=== PATIENT | female | born 1980 | race Caucasian/White ===

== ENCOUNTER 2017-03-19 05:47 | Day surgery (SDC) | payer OTHER ==
[~2017-03-19] VITALS: Ht 170.2 cm; Wt 80.3 kg
[~2017-03-19 05:47] MED LIST: [UNRECOGNIZED DRUG - REMARK]
[2017-03-19] MEDS ORDERED: HYDROmorphone 2 MG/ML VIAL IVP PRN ×3 (08:45→10:45)
[2017-03-19] MEDS ORDERED: MEPERIDINE HCL/PF 25 MG/ML DISP.SYRIN IVP PRN (08:45)
[2017-03-19] MEDS ORDERED: LR 1,000 ML IV SCH (08:45)
[2017-03-19] MEDS ORDERED: HYDROmorphone 1 MG INJ. 1 MG/ML AMPUL IVP PRN (08:45)
[2017-03-19 10:26] VITALS: BP_SYST 103
[2017-03-19] MEDS ORDERED: ONDANSETRON HCL 4 MG/2 ML VIAL IVP PRN (10:45)
[2017-03-19] MEDS ORDERED: HYDROcodone/ACETAMIN 5-325 MG TAB (NORCO/ VICODIN) PO PRN (10:45)
[2017-03-19] MEDS ORDERED: OXYCODONE/ACETAMINOPHEN 5-325 TABLET PO PRN ×2 (10:45)
[2017-03-19] MEDS ORDERED: HYDROmorphone 1 MG INJ. 1 MG/ML AMPUL ONE (10:56)
== END 2017-03-19 12:35 | disposition home or self-care (01) ==
LOC: SDS 05:47
PROVIDERS: ATTEND Specialist
DX: N80.1 Endometriosis of ovary (principal); N73.6 Female pelvic peritoneal adhesions (postinfective); Z90.710 Acquired absence of both cervix and uterus; Z88.0 Allergy status to penicillin; Z88.8 Allergy status to other drugs, medicaments and biological substances; R00.0 Tachycardia, unspecified
CPT/HCPCS: 58662; 88305; C1727; J1170; J7120

== ENCOUNTER 2020-09-15 15:11 | Outpatient (CLI) | payer OTHER | END 2020-09-15 20:50 | disposition home or self-care (01) | LOC: EEVIPCON 15:11 → SRD 15:11 | PROVIDERS: ATTEND Family Medicine | DX: R60.9 Edema, unspecified (principal) ==

== ENCOUNTER 2020-10-18 14:15 | Outpatient (CLI) | payer OTHER ==
[2020-10-18 15:40] LABS: HEMATOCRIT 37.5 % (36-48); HEMOGLOBIN 12.9 g/dL (12.0-16.0); MEAN CORPUSCULAR HEMOGLOBIN 32 pg (27-31); MEAN CORPUSCULAR HGB CONC 34 % (32-36); MEAN CORPUSCULAR VOLUME 93 fL (79.0-98.0); PLATELET COUNT (AUTO) 286 K/uL (130-430); RED BLOOD CELL COUNT(AUTO) 4.04 MIL/uL (4.2-6.2); WHITE BLOOD COUNT (AUTO) 5.5 K/uL (4.8-10.8)
[2020-10-18 16:11] LABS: BILIRUBIN,DIRECT 0.1 mg/dL (0.0-0.3); CALCIUM 8.4 mg/dL (8.4-11.0); CREATININE 0.79 mg/dL (0.55-1.30); POTASSIUM 3.6 mmol/L (3.5-5.1); THYROID STIMULATING HORMONE 1.25 uIu/mL (0.36-3.74); TOTAL BILIRUBIN 0.5 mg/dL (0.0-1.0)
[2020-10-18 17:12] LABS: BAND % (MANUAL) 4 % (0-6); BASOPHILS % (MANUAL) 0 % (0-2); EOSINOPHILS % (MANUAL) 4 % (0-7); LYMPHOCYTES % (MANUAL) 38 % (20-46); MONOCYTES % (MANUAL) 15 % (0-11)
[2020-10-19 08:06] LABS: RA LATEX TURBID <10.0 IU/mL (0.0-13.9); TRIIODOTHYRONINE, FREE 3.2 pg/mL (2.0-4.4)
[2020-10-19 15:06] LABS: ANTI NUCLEAR AB WITH REFLEX Negative (Negative)
== END 2020-10-18 21:06 | disposition home or self-care (01) ==
LOC: SLB 14:15
PROVIDERS: ATTEND Family Medicine
DX: R20.2 Paresthesia of skin (principal); Z00.00 Encounter for general adult medical examination without abnormal findings; E78.41 Elevated Lipoprotein(a); Z13.220 Encounter for screening for lipoid disorders
CPT/HCPCS: 36415; 80053; 80061; 82248-TC; 82607; 83036; 84443-TC; 84481; 85007; 85027; 86038; 86431

== ENCOUNTER 2020-10-28 11:16 | Outpatient (CLI) | payer OTHER ==
[2020-10-28 12:58] LABS: BASOPHILS % (AUTO) 0.7 % (0.0-2.0); EOSINOPHILS # (AUTO) 0.1 K/uL (0.0-0.4); EOSINOPHILS % (AUTO) 2.5 % (0.0-4.0); HEMATOCRIT 37.4 % (36-48); HEMOGLOBIN 12.9 g/dL (12.0-16.0); LYMPHOCYTES # (AUTO) 1.9 K/uL (1.0-5.5); LYMPHOCYTES % (AUTO) 40.8 % (20.5-51.5); MEAN CORPUSCULAR HEMOGLOBIN 32 pg (27-31); MEAN CORPUSCULAR HGB CONC 34 % (32-36); MEAN CORPUSCULAR VOLUME 93 fL (79.0-98.0); MONOCYTES # (AUTO) 0.2 K/uL (0.0-1.0); MONOCYTES % (AUTO) 3.4 % (1.7-9.3); NEUTROPHILS # (AUTO) 2.5 K/uL (1.8-7.7); NEUTROPHILS % (AUTO) 52.6 % (40.0-70.0); PLATELET COUNT (AUTO) 249 K/uL (130-430); RED BLOOD CELL COUNT(AUTO) 4.03 MIL/uL (4.2-6.2); RED CELL DISTRIBUTION WIDTH 12.9 % (9.0-15.0); WHITE BLOOD COUNT (AUTO) 4.7 K/uL (4.8-10.8)
[2020-10-28 13:16] LABS: ALBUMIN 3.9 g/dL (3.4-4.8); CALCIUM 8.2 mg/dL (8.4-11.0); CREATININE 0.86 mg/dL (0.55-1.30); POTASSIUM 3.5 mmol/L (3.5-5.1); TOTAL BILIRUBIN 0.3 mg/dL (0.0-1.0)
[2020-10-28 13:22] LABS: BILIRUBIN,URINE NEGATIVE (NEGATIVE); BLOOD, URINE NEGATIVE (NEGATIVE); CLARITY/URINE CLEAR (CLEAR); COLOR,URINE YELLOW (YELLOW); GLUCOSE,URINE NEGATIVE (NEGATIVE); KETONES,URINE NEGATIVE (NEGATIVE); LEUKOCYTE ESTERASE ,URINE NEGATIVE (NEGATIVE); NITRITE, URINE NEGATIVE (NEGATIVE); PROTEIN URINE NEGATIVE (NEGATIVE); UROBILINOGEN,URINE 0.2 (0.2-1.0)
[2020-10-28 13:59] LABS: ERYTHROCYTE SEDIMENTATION RATE 7 MM/HR (0-20)
[2020-10-28 14:09] LABS: C-REACTIVE PROTEIN QUANT 0.2 mg/dL (0-0.5)
== END 2020-10-28 21:07 | disposition home or self-care (01) ==
LOC: SLB 11:16
DX: M54.12 Radiculopathy, cervical region (principal); M54.30 Sciatica, unspecified side
CPT/HCPCS: 36415; 72050-TC; 72110; 80053; 81003; 82306; 82607; 85025; 85651-TC; 86140; 86146; 86376; 87086

== ENCOUNTER 2020-12-13 10:52 | Outpatient (CLI) | payer OTHER | END 2020-12-13 20:29 | disposition home or self-care (01) | LOC: SMA 10:52 | PROVIDERS: ATTEND Anesthesiology Pain Medicine | DX: M47.812 Spondylosis without myelopathy or radiculopathy, cervical region (principal); M50.21 Other cervical disc displacement, high cervical region; M46.02 Spinal enthesopathy, cervical region; M79.18 Myalgia, other site | CPT/HCPCS: 72141 ==

== ENCOUNTER 2022-07-25 11:21 | Outpatient (CLI) | payer OTHER | END 2022-07-25 18:47 | disposition home or self-care (01) | LOC: SMI 11:21 | PROVIDERS: ATTEND Family Medicine | DX: M47.22 Other spondylosis with radiculopathy, cervical region (principal); M48.02 Spinal stenosis, cervical region; M50.121 Cervical disc disorder at C4-C5 level with radiculopathy; M50.122 Cervical disc disorder at C5-C6 level with radiculopathy; M50.123 Cervical disc disorder at C6-C7 level with radiculopathy | CPT/HCPCS: 72141 ==

== ENCOUNTER 2022-10-24 07:08 | Day surgery (SDC) | payer OTHER ==
[~2022-10-24] VITALS: Ht 170.2 cm; Wt 80.7 kg
[2022-10-24] MEDS ORDERED: FLUMAZENIL 0.1 MG/ML IVP ONE (08:38)
[2022-10-24] MEDS ORDERED: NALOXONE HCL 0.4 MG/ML AMP (NARCAN) ONE (08:38)
[2022-10-24] MEDS ORDERED: DIPHENHYDRAMINE INJ 50 MG/ML VIAL ONE (08:39)
[2022-10-24] MEDS ORDERED: fentaNYL CITRATE/PF 100 MCG/2 ML AMP ONE (08:40)
[2022-10-24] MEDS ORDERED: ISOVUE-300 (IOPAMIDOL) 100 ML INFUS..BTL IV ONE (09:00)
[2022-10-24] MEDS ORDERED: NORMAL SALINE 10 ML VIAL ONE (09:00)
[2022-10-24] MEDS ORDERED: LIDOCAINE 2%, 20 ML MDV ONE (09:00)
[2022-10-24] MEDS ORDERED: ONDANSETRON HCL 4 MG/2 ML VIAL ONE ×2 (09:00→09:35)
[2022-10-24] MEDS ORDERED: methylPREDNISolone ACETATE 40 MG/ML ONE (09:00)
[2022-10-24] MEDS: MIDAZOLAM HCL 5 MG/5 ML VIAL ONE ×2 (09:40→09:44)
[2022-10-24 14:00] VITALS: BP_SYST 102
== END 2022-10-24 11:40 | disposition home or self-care (01) ==
LOC: SDS 07:08 → SMU 07:09 → SDS 11:40
PROVIDERS: ATTEND Internal Medicine
DX: M47.812 Spondylosis without myelopathy or radiculopathy, cervical region (principal); Z20.822 Contact with and (suspected) exposure to COVID-19
CPT/HCPCS: 64490; 87426; 64491; 36415; J1200; J2001; J1030; J2250; J2405; J3010; Q9967; 76000; J2310; J3490

== ENCOUNTER 2023-06-19 07:19 | Day surgery (SDC) | payer OTHER ==
[~2023-06-19] VITALS: Ht 170.2 cm; Wt 79.4 kg
[2023-06-19] MEDS ORDERED: NORMAL SALINE 10 ML VIAL ONE (08:00)
[2023-06-19] MEDS ORDERED: DEXAMETHASONE SOD PHOSPHATE 4 MG/ML VIAL ONE (08:00)
[2023-06-19] MEDS ORDERED: LIDOCAINE 2%, 20 ML MDV ONE (08:00)
[2023-06-19] MEDS ORDERED: ISOVUE-300 (IOPAMIDOL) 100 ML INFUS..BTL IV ONE (08:00)
[2023-06-19 08:09] VITALS: O2SAT 99
[2023-06-19] MEDS ORDERED: DIPHENHYDRAMINE INJ 50 MG/ML VIAL ONE ×2 (08:52→09:11)
[2023-06-19] MEDS ORDERED: ONDANSETRON HCL 4 MG/2 ML VIAL ONE (08:52)
[2023-06-19] MEDS ORDERED: fentaNYL CITRATE/PF 100 MCG/2 ML AMP ONE (08:53)
[2023-06-19] MEDS: MIDAZOLAM HCL 5 MG/5 ML VIAL ONE ×3 (09:35→09:42)
[2023-06-19 14:42] VITALS: BP_SYST 104; PULSE 74; RESP 17
== END 2023-06-19 11:01 | disposition home or self-care (01) ==
LOC: SMU 07:19 → SDS 07:19
PROVIDERS: ATTEND Internal Medicine
DX: M50.90 Cervical disc disorder, unspecified, unspecified cervical region (principal); M25.512 Pain in left shoulder; M25.521 Pain in right elbow; M25.522 Pain in left elbow; M25.511 Pain in right shoulder; Z90.710 Acquired absence of both cervix and uterus; Z88.0 Allergy status to penicillin; Z88.1 Allergy status to other antibiotic agents; Z79.899 Other long term (current) drug therapy
CPT/HCPCS: 62321; J1100; J1200; J2001; J2250; J3010; Q9967; 76000; J2405

== ENCOUNTER 2023-10-23 06:40 | Day surgery (SDC) | payer OTHER ==
[~2023-10-23] VITALS: Ht 170.2 cm; Wt 80.3 kg
[2023-10-23 07:00] VITALS: O2SAT 100
[2023-10-23] MEDS ORDERED: DIPHENHYDRAMINE INJ 50 MG/ML VIAL ONE (07:41)
[2023-10-23] MEDS: MIDAZOLAM HCL 5 MG/5 ML VIAL ONE (09:11)
[2023-10-23] MEDS: fentaNYL CITRATE/PF 100 MCG/2 ML AMP ONE (09:13)
[2023-10-23] MEDS ORDERED: methylPREDNISolone ACETATE 40 MG/ML ONE (10:00)
[2023-10-23] MEDS ORDERED: LIDOCAINE 2%, 20 ML MDV ONE (10:00)
[2023-10-23] MEDS: KETOROLAC TROMETHAMINE 30 MG VIAL ONE (10:01)
[2023-10-23 16:11] VITALS: BP_SYST 105; PULSE 75; RESP 16
== END 2023-10-23 10:20 | disposition home or self-care (01) ==
LOC: SMU 06:40 → SDS 06:40
PROVIDERS: ATTEND Internal Medicine
DX: M47.812 Spondylosis without myelopathy or radiculopathy, cervical region (principal); G89.29 Other chronic pain; Z88.2 Allergy status to sulfonamides; Z88.0 Allergy status to penicillin; Z79.899 Other long term (current) drug therapy; Z90.710 Acquired absence of both cervix and uterus
CPT/HCPCS: 64490; 64491 ×2; J1885; J1030; J2250; J3010; 76000; J1200; J2001